=== PATIENT | female | born 1995 | race African-American/Black ===

== ENCOUNTER 2019-03-20 14:08 | Outpatient (CLI) | payer OTHER ==
[~2019-03-20] VITALS: Ht 160 cm; Wt 73.7 kg
[2019-03-20] MEDS ORDERED: PRENTAB9 PO (14:27)
[2019-03-20 14:28] VITALS: BP 114/57
[2019-03-20 14:40] VITALS: BP 118/61
[2019-03-20 15:52] VITALS: BP 106/59
== END 2019-03-20 16:10 | disposition home or self-care (01) ==
LOC: M LDO 14:08
PROVIDERS: ATTEND Obstetrics & Gynecology
DX: O47.1 False labor at or after 37 completed weeks of gestation (principal); Z3A.40 40 weeks gestation of pregnancy
CPT/HCPCS: 59025; G0378; G0463

== ENCOUNTER 2019-03-21 04:02 | Inpatient (IN) | payer OTHER ==
[2019-03-21] VITALS (42 sets, daily range): BP systolic 87–136; BP diastolic 42–77
[~2019-03-21] VITALS: Ht 160 cm; Wt 73.7 kg
[~2019-03-21 04:02] MED LIST: PRENTAB9 PO
[2019-03-21] MEDS: LR 1,000 ML IV SCH ×2 (04:32→09:02)
[2019-03-21] MEDS ORDERED: LACTATED RINGER'S 1000 ML IV STA (04:32)
[2019-03-21 04:44] LABS: HEMATOCRIT 36.7 % (36.0-47.0); MEAN CORPUSCULAR HEMOGLOBIN 27.4 pg (27.0-33.0); MEAN CORPUSCULAR HGB CONC 32.7 g/dl (32.0-36.5); MEAN CORPUSCULAR VOLUME 83.8 fl (80.0-96.0); PLATELET COUNT, AUTOMATED 238 10^3/uL (150-450); RED BLOOD COUNT 4.38 10^6/uL (4.00-5.40); WHITE BLOOD COUNT 17.5 10^3/uL (4.0-10.0)
--- NOTE | 2019-03-21 04:45 | HPEPDOC ---
Obstetrical History & Physical General Date of Admission March 21, 2019 at 04:31 History of Present Illness 23 y/o at 40+3 with painful reg ctx's, seen yest and sent home cx was a tight 3 cm, now per RN is a loose 4 cm and ctx pain significantly increased about 2-3 hours ago. No LOF/VB yet. Pos FM. Preg c/b only pos chlamydia in , tx'd and neg SU . 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 (x1) Past Medical History Medical History neg Surgical History: Garvin teeth Family History Significant Family History: No pertinent family hx Social History Marital Status: Family situation: Spouse/partner home Psychosocial History: No pertinent psych hx * Smoker: non-smoker Alcohol: Denies Drugs: denies Abuse Violence Screening Have you been hit/kicked/slapp: No Have you been sexually assault: No Imunizations Tdap status: current Influenza Status: current Allergies Coded Allergies: No Known Allergies (Unverified , 03/20/19) Medications Scheduled No.137/Iron/Folic Acd ( Vitamin Tablet) 1 Each Tablet, 1 TAB PO DAILY Physical Examination Physical Examination GENERAL: Alert and oriented times three. ABDOMEN: Gravid and non-tender to touch. FETUS: Is vertex (VTX) by sterile vaginal examination (SVE), FRN check loose 4 cm EXTREMITIES: No edema. Laboratory Data 24H LABS Laboratory Tests 2 03/21/19 04:35: Serology Scanned Report Hepatitis B Testing Urine Culture: No Growth Pertinent Laboratoy Data Blood Type: B+ RBC Antibody Screen: Negative HIV: Negative Hepatitis B: Negative Hepatitis C: Unknown Rapid Plasma Reagin: Nonreactive Rubella: Immune Varicella: Immune Chlamydia/Gonorrhea: Positive (neg su thereafter) Group B Streptococcus: Negative Quad Screen Test: Declined Cystic Fibrosis: Negative Glucose Tolerance Test: 79 Anatomy Ultrasound Placenta Location: Posterior Normal Anatomy: Yes Placenta Previa: No Assessment Variability: Moderate Accelerations: Positive Decelerations: None Tocometer Contractions: Yes Frequency: regular Duration: greater than 60 seconds Strength: palpated as strong Assessment/Plan Assessment active labor Plan Admit and orient. Philatelic Consultant and consent. Diet: clears Group B Streptococcus (GBS) nega Labs and intravenous (IV) per unit protocol. Counseled on Pitocin and induction of labor (IOL). Lactated Ringers (LR): Bolus 1000 mL, then at 125 mL/hr. Anticipate normal spontaneous delivery () C-S as appropriate. Sessions MD SESSIONS,BASILIO Wilkerson MD March 21, 2019 04:45
[2019-03-21] MEDS ORDERED: FENTANYL 2MCG/ML ROPIVACAINE 0.2% IN 0.9% NACL 100ML IVBAG As Ordered ONE (05:12)
[2019-03-21] MEDS ORDERED: diphenhydrAMINE INJ 50MG/ML VIAL (J1200) IV PRN (06:45)
[2019-03-21] MEDS ORDERED: REFRIGERATOR IV KEYS XX PRN (06:45)
[2019-03-21] MEDS ORDERED: NALOXONE INJ 0.4 MG/1 ML VIAL (J2310) IV PRN (06:45)
[2019-03-21] MEDS ORDERED: ePHEDrine SULFATE 25 MG/5 ML(5MG/ML) SYRINGE IV PRN (06:45)
[2019-03-21] MEDS ORDERED: LACTATED RINGER'S 1000 ML IV PRN (06:45)
[2019-03-21] MEDS ORDERED: EPIDURAL COMMENT XX SCH (06:45)
[2019-03-21] MEDS ORDERED: ONDANSETRON 4MG/2ML VIAL (J2405) IV PRN (06:45)
[2019-03-21] MEDS: FENTANYL/ROPIVACAINE/NACL BAG 100 ML EPIDURAL SCH ×3 (06:45→19:22)
[2019-03-21] MEDS ORDERED: EPIDURAL/PCA KEYS XX PRN (06:45)
--- NOTE | 2019-03-21 08:45 | IPNPDOC ---
Text Note Date of Service The patient was seen on 03/21/19. NOTE Intrapartum Note Navid is a 23yo with SIUP at 40w3d admitted last night for active labor, SCE 4cm. She received an epidural and has been comfortably resting. Vitals wnl, afebrile SCE: /-1, AROM performed with clear fluid noted Cat I FHRT with +accels/-decels/mod cristhian [place]: ctx q2-5min Will continue pitocin per protocol Will closely monitor Plan to repeat SCE in 2-4hr Safe to proceed Dr. Aylin Cooper MD A-FIB/CHADSVASC A-FIB History Current/History of A-Fib/PAF?: No Current Oral Anticoagulant The: No VS,Fishbone, I+O VS, Fishbone, I+O Laboratory Tests 03/21/19 04:37 Red Blood Count 4.38, Mean Corpuscular Volume 83.8, Mean Corpuscular Hemoglobin 27.4, Mean Corpuscular Hemoglobin Concent 32.7, Red Cell Distribution Width 12.7 Vital Signs Date Time Temp Pulse Resp B/P (MAP) Pulse Ox O2 Delivery O2 Flow Rate FiO2 03/21/19 06:32 67 20 95/55 (68) 03/21/19 05:32 99.8 Aylin Cooper MD March 21, 2019 08:45
--- NOTE | 2019-03-21 12:27 | IPNPDOC ---
Text Note Date of Service The patient was seen on 03/21/19. NOTE Intrapartum Note Navid is a 23yo with SIUP at 40w3d admitted last night for active labor, SCE 4cm. She received an epidural and has been comfortable. Vitals wnl, afebrile SCE: /-1, clear fluid still Cat I FHRT with +accels/-decels/mod cristhian [place]: ctx q2-5min Will begin pitocin and titrate per protocol Will closely monitor Plan to repeat SCE in 4hr or earlier as indicated Safe to proceed Dr. Aylin Cooper MD A-FIB/CHADSVASC A-FIB History Current/History of A-Fib/PAF?: No Current Oral Anticoagulant The: No VS,Fishbone, I+O VS, Fishbone, I+O Laboratory Tests 03/21/19 04:37 Red Blood Count 4.38, Mean Corpuscular Volume 83.8, Mean Corpuscular Hemoglobin 27.4, Mean Corpuscular Hemoglobin Concent 32.7, Red Cell Distribution Width 12.7 Vital Signs Date Time Temp Pulse Resp B/P (MAP) Pulse Ox O2 Delivery O2 Flow Rate FiO2 03/21/19 11:25 72 16 107/60 (76) 03/21/19 09:25 98.4 Aylin Cooper MD March 21, 2019 12:27
[2019-03-21] MEDS ORDERED: OXYTOCIN DRIP 30 UNITS in APPROPRIATE DILUENT 1 EA IV SCH ×2 (12:30→14:59)
[2019-03-21] MEDS ORDERED: OXYTOCIN 30 UNITS IN 0.9% NaCl 500ML IV BAG (J2590) As Ordered ONE (12:35)
[2019-03-21 14:59] LABS: CORD GAS ABE A -10.5; CORD GAS HCO3 A 20.3 MEQ/L; CORD GAS O2 SAT A 42.1 %; CORD GAS PCO2 A 65.1 mmHg; CORD GAS PH A 7.111 UNITS; CORD GAS PO2 A 24.1 mmHg; CORD GAS SBC A 15.2 MEQ/L; CORD GAS TCO2 A 22.3 MEQ/L
[2019-03-21] MEDS ORDERED: DIBUCAINE 1% OINTMENT 30GM TOP PRN (15:00)
[2019-03-21] MEDS ORDERED: DOCUSATE SODIUM 100 MG CAP PO PRN (15:00)
[2019-03-21] MEDS ORDERED: MEASLES,MUMPS,RUBELLA VACCINE INJ (MMR-II) (90707) SC SCH (15:00)
[2019-03-21] MEDS ORDERED: ACETAMINOPHEN 500 MG TAB PO PRN (15:00)
[2019-03-21] MEDS ORDERED: ACETAMINOPHEN TAB 650MG DOSE (2X325MG) PO PRN (15:00)
[2019-03-21] MEDS ORDERED: IBUPROFEN 600 MG TAB PO PRN (15:00)
[2019-03-21] MEDS ORDERED: RHOGAM 300 MCG (1500 IU) INJ (J2790) IM SCH (15:00)
[2019-03-21 15:01] LABS: CORD GAS ABE V -8.8; CORD GAS HCO3 V 21.1 MEQ/L; CORD GAS O2 SAT V 42.3 %; CORD GAS PCO2 V 60.9 mmHg; CORD GAS PH V 7.157 UNITS; CORD GAS PO2 V 22.8 mmHg; CORD GAS SBC V 16.3 MEQ/L; CORD GAS TCO2 V 22.9 MEQ/L
--- NOTE | 2019-03-21 15:09 | DNPDOC ---
[facility] Delivery Note Delivery Note DATE OF DELIVERY: 21 Mar 2019 PREDELIVERY DIAGNOSIS: 40 and 3 weeks' gestation and labor. POST DELIVERY DIAGNOSIS: Delivered. PROCEDURE: Spontaneous vaginal delivery [employer] APPRAISER: Dr. Aylin Cooper MD ANESTHESIA: epidural ESTIMATED BLOOD LOSS: 200 mL FINDINGS: 7 pound 9 ounce (3420g) male , Score 7/8 DELIVERY SUMMARY: Navid is a 23yo [id number] s/p uncomplicated at 40w3d after presenting in active labor, delivering at 14:38 on 21 Mar 2019. She presented at 4cm, received an epidural and progressed to C/C/+1 at which point she began pushing. head delivered ROP. Left anterior shoulder delivered easily followed by posterior shoulder and corpus. Infant was "stunned", placed on maternal abdomen where nose and mouth were suctioned with bulb suction. Cord immediately clamped x2 and cut by FOB, infant then taken to the warmer for further resuscitation- spontaneous cry soon thereafter noted. Cord gases were obtained for some bradycardia just prior to delivery and "stunned" presentation (pHa 7.11, BE - 10.5 and pHv 7.16, BE -8.8). Uterine massage performed, traction on the umbilical cord, placenta delivered spontaneously and intact with 3 vessel centrally inserted cord. IV pitocin was given per protocol, bimanual massage was performed and uterus then firm at u-2cm. Inspection of perineum and vagina revealed 2 small superficial hymenal nicks repaired with figure of 8's using 3-0 vicryl in routine fashion with complete hemostasis and good cosmesis. All counts correct x2. Total hemostasis assured. Mom and infant were doing well when I left the room. MD Kenneth Mckoy Katrina D MD March 21, 2019 15:09
[2019-03-21] MEDS: IBUPROFEN 800 MG TAB PO PRN (18:14)
[2019-03-22 06:14] VITALS: BP 117/56
--- NOTE | 2019-03-22 08:05 | IPNPDOC ---
Progress Note Date of Service: March 22, 2019 Day#: 1 Progress Note PPD 1 SUBJECT: Navid is a 23yo [id number] s/p uncomplicated at 40w3d after presenting in active labor, delivering at 14:38 on 21 Mar 2019. She is doing well day # 1. She has been ambulating, voiding spontaneously without issue and tolerating regular diet. Bottle feeding without issue. Reports lochia is like a light period. No f/c/n/v/CP/SOB. OBJECTIVE: VITAL SIGNS: Within normal limits, afebrile. Alert and oriented times three. Abdomen: Fundus firm at U-2. Soft, NTTP. Extremities: no edema BLE ASSESSMENT: Navid is a 23yo [id number] s/p uncomplicated at 40w3d after presenting in active labor, delivering at 14:38 on 21 Mar 2019. She is doing well day # 1. Vitals within normal limits, afebrile, hemodynamically stable with no evidence of infection. PLAN: 1. Routine care 2. Tylenol and Motrin for pain 3. Encourage ambulation and bonding 4. Regular diet 5. Possible discharge home tomorrow if meeting all milestones Dr. Aylin Cooper MD VS, I&O, 24H, [facility] Vital Signs/I&O Vital Signs Date Time Temp Pulse Resp B/P (MAP) Pulse Ox O2 Delivery O2 Flow Rate FiO2 03/22/19 06:14 97.9 73 16 117/56 (76) 03/21/19 18:00 99 I&O- Last 24 Hours up to 6 AM 03/22/19 06:00 Intake Total 4900 ml Output Total 2200 ml Balance 2700 ml Laboratory Data 24H LABS Laboratory Tests 2 03/21/19 14:49: Cord Arterial Blood pH 7.111, Cord Arterial Blood PCO2 65.1, Cord Arterial Blood PO2 24.1, Cord Arterial Blood HCO3 20.3, Cord Arterial Blood Total CO2 22.3, Cord Arterial Blood Base Excess -10.5, Cord Arterial Base Excess (Standard 15.2, Cord Arterial Bld Oxygen Saturation 42.1, Cord Venous Blood pH 7.157, Cord Venous Blood PCO2 60.9, Cord Venous Blood PO2 22.8, Cord Venous Blood HCO3 21.1, Cord Venous Blood Total CO2 22.9, Cord Venous Base Excess (Actual) -8.8, Cord Venous Base Excess (Standard) 16.3, Cord Venous Blood Oxygen Saturation 42.3 Aylin Cooper MD March 22, 2019 08:05
[2019-03-22] MEDS: PRENATAL VITAMINS CHEWABLE TABLET PO SCH (15:11)
[2019-03-22] MEDS: IBUPROFEN 800 MG TAB PO PRN ×2 (15:12→21:44)
[2019-03-22 18:05] VITALS: BP 104/56
--- NOTE | 2019-03-22 22:24 | IPN ---
DATE: 03/22/2019 This patient requested circumcision of her male . After discussing risks and benefits of circumcision, the medical and nonmedical indications, penile block and aftercare, expressed understanding of penile block aftercare and bleeding, signed and witnessed the consent form. All questions were answered. 20-minute discussion. We now await the clearance by the silviculture professor.
[2019-03-23 06:07] VITALS: BP 106/53
[2019-03-23] MEDS ORDERED: DIBU10OI TOP (07:17)
[2019-03-23] MEDS ORDERED: ACET-683 PO (07:17)
[2019-03-23] MEDS ORDERED: COLA100C5 PO (07:17)
[2019-03-23] MEDS ORDERED: PRENCHW PO (07:17)
[2019-03-23] MEDS ORDERED: IBUP80TA PO (07:17)
[2019-03-23] MEDS: PRENATAL VITAMINS CHEWABLE TABLET PO SCH (08:17)
[2019-03-23] MEDS: IBUPROFEN 800 MG TAB PO PRN (08:18)
--- NOTE | 2019-03-23 11:32 | DSES ---
DATE OF ADMISSION: 03/21/2019 DATE OF DISCHARGE: This 23-year-old 2, now para 1, admitted at 43 weeks of gestation with contractions. She had an epidural in place, spontaneous vaginal delivery male infant, 7 pounds 9 ounces, 3420 grams. scores of 7 and 8 at 1 and 5 minutes, respectively. She had a couple hymenal tears oversewn in usual fashion with 3-0. The uterus contracted well down on Pitocin. On her second postoperative day, we discussed phlebitis, cystitis, mastitis, endometritis, and cellulitis, diet, exercise, pain management, perineal, breast, and wound care. Admitting hemoglobin was 12.0, hematocrit 36.7, and platelets were 283. She had arterial blood gases 7.11, base excess -10.5, venous pH 7.15, base excess -8.8. Her discharge blood pressure is 106/53, respirations 17, pulse 60, temperature 97.3. Medications were dispensed to Rose. She has her 6-week checkup at [facility] ([facility]). All questions were answered. The patient discharged to followup with both baby and mother.
== END 2019-03-23 13:50 | disposition home or self-care (01) | DRG 807 ==
LOC: M LDO 04:02 → M LDI 04:31 → M OBS 17:30
PROVIDERS: ADMIT Obstetrics & Gynecology; ATTEND Obstetrics & Gynecology
PROC: 10E0XZZ Delivery of Products of Conception, External Approach (ICD-10-PCS; principal; 2019-03-21)
PROC: 0HQ9XZZ Repair Perineum Skin, External Approach (ICD-10-PCS; 2019-03-21)
DX: O48.0 Post-term pregnancy (principal); Z37.0 Single live birth; Z3A.40 40 weeks gestation of pregnancy; O70.0 First degree perineal laceration during delivery

== ENCOUNTER 2020-01-19 11:07 | Emergency (ER) | payer OTHER ==
[~2020-01-19] VITALS: Ht 157.5 cm; Wt 64.4 kg
[~2020-01-19 11:07] MED LIST changes: +ACET-683 PO; +COLA100C5 PO; +DIBU10OI TOP; +IBUP80TA PO; +PRENCHW PO
[2020-01-19 12:14] LABS: BASO % 0.7 % (0.0-1.0); EOS # 0.2 10^3/uL (0.0-0.5); EOS % 2.7 % (0.0-3.0); HEMATOCRIT 41.7 % (36.0-47.0); HEMOGLOBIN 13.4 g/dl (12.0-15.5); LYMPH % 34.7 % (24.0-44.0); MEAN CORPUSCULAR HEMOGLOBIN 30.1 pg (27.0-33.0); MEAN CORPUSCULAR HGB CONC 32.1 g/dl (32.0-36.5); MEAN CORPUSCULAR VOLUME 93.7 fl (80.0-96.0); MONO # 0.4 10^3/uL (0.0-0.8); MONO % 6.3 % (0.0-5.0); NEUTROPHILS # 3.2 10^3/uL (1.5-8.5); NEUTROPHILS % 54.9 % (36.0-66.0); PLATELET COUNT, AUTOMATED 228 10^3/uL (150-450); RED BLOOD COUNT 4.45 10^6/uL (4.00-5.40); WHITE BLOOD COUNT 5.9 10^3/uL (4.0-10.0)
[2020-01-19 12:42] LABS: BLOOD UREA NITROGEN 8 MG/DL (7-18); CALCIUM LEVEL 8.9 MG/DL (8.5-10.1); CARBON DIOXIDE LEVEL 31 MEQ/L (21-32); CHLORIDE LEVEL 106 MEQ/L (98-107); CREATININE FOR GFR 0.65 MG/DL (0.55-1.30); GLOMERULAR FILTRATION RATE > 60.0 (>60); GLUCOSE, FASTING 84 MG/DL (70-100); POTASSIUM SERUM 4.2 MEQ/L (3.5-5.1); SODIUM LEVEL 142 MEQ/L (136-145)
--- NOTE | 2020-01-19 12:49 | REP ---
PELVIC SONOGRAPHY: HISTORY: Cramping and bleeding. 7 days status post dilation and curettage. FINDINGS: Transabdominal and transvaginal scanning are performed. Uterine dimensions are 10.1 x 4.6 x 7.9 cm. Mild residual enlargement. Endometrial stripe is 1.5 cm thick and centrally placed. No focal uterine mass is seen. Visualized bladder millan are smooth. Normal ovaries are seen. Right ovary dimensions are 3.0 x 2.4 x 3.7 cm. Left ovary measures 3.4 x 2.1 x 1.9 cm. Doppler flow is present in both ovaries. Resistive indices are measured at 0.49 on the right and 0.37 on the left. IMPRESSION: Mildly prominent size uterus. Normal ovaries. No free fluid. Incidental note is made of a pelvic kidney which is believed to be the right kidney. Electronically Signed by Waldemar Loera MD 01/19/2020 12:52 P
[2020-01-19] MEDS ORDERED: IBUP80TA PO (13:49)
[2020-01-19] MEDS ORDERED: FLAG500T PO (13:49)
[2020-01-19 14:05] VITALS: BP 108/57
[2020-01-19 15:03] LABS: CHLAMYDIA DNA AMPLIFICATION NEGATIVE (NEGATIVE); GC DNA AMPLIFICATION NEGATIVE (NEGATIVE)
== END 2020-01-19 14:17 | disposition home or self-care (01) ==
LOC: M ED 11:07
DX: N93.9 Abnormal uterine and vaginal bleeding, unspecified (principal); R10.2 Pelvic and perineal pain; N76.0 Acute vaginitis; F17.200 Nicotine dependence, unspecified, uncomplicated; Z79.899 Other long term (current) drug therapy; Z86.19 Personal history of other infectious and parasitic diseases